=== PATIENT | female | born 1990 | race American Indian/Alaskan Native ===

== ENCOUNTER 2018-08-15 10:02 | Emergency (ER) | payer MEDICAID ==
[2018-08-15 10:11] VITALS: BP 113/68
--- NOTE | 2018-08-15 12:18 | Emergency Department Report ---
ED Female HPI - General Chief complaint: Vaginal Bleeding Stated complaint: VAGINAL BLEEDING Time Seen by Provider: 08/15/18 12:13 Source: patient Mode of arrival: Ambulatory Limitations: No Limitations - History of Present Illness Initial comments: Patient is 28 years old female 8 para 7. Patient presented to the ER complaining of vaginal bleeding, spotting started this morning. Patient stated that her last menstrual period was June 20. Patient also complaining of lower abdominal pain, crampy in nature. Patient denied any vaginal discharge or dysuria. No fever, shortness of breath or chest pain. MD Complaint: vaginal bleeding - Related Data Allergies Allergy/AdvReac Type Severity Reaction Status Date / Time No Known Allergies Allergy Unverified 08/15/18 10:09 ED Review of Systems ROS: Stated complaint: VAGINAL BLEEDING Other details as noted in HPI Comment: All other systems reviewed and negative Constitutional: denies: chills, fever Respiratory: denies: cough, orthopnea, shortness of breath, SOB with exertion, SOB at rest Cardiovascular: denies: chest pain, palpitations Gastrointestinal: abdominal pain. denies: nausea, vomiting ED Past Medical Hx - Past Medical History Previous Medical History?: No - Surgical History Past Surgical History?: Yes Hx Cholecystectomy: Yes - Social History Smoking Status: Never Smoker Substance Use Type: None ED Physical Exam - General Limitations: No Limitations General appearance: alert, in no apparent distress - Head Head exam: Present: atraumatic, normocephalic, normal inspection - Eye Eye exam: Present: normal appearance, PERRL - ENT ENT exam: Present: normal exam, normal orophraynx, mucous membranes moist - Neck Neck exam: Present: normal inspection, full ROM. Absent: tenderness, meningism us, lymphadenopathy, thyromegaly - Respiratory Respiratory exam: Present: normal lung sounds bilaterally - Cardiovascular Cardiovascular Exam: Present: regular rate, normal rhythm, normal heart sounds - GI/Abdominal GI/Abdominal exam: Present: soft, normal bowel sounds. Absent: distended, tenderness, guarding, rebound, rigid - Extremities Exam Extremities exam: Present: normal inspection, full ROM, normal capillary refill. Absent: tenderness - Back Exam Back exam: Present: normal inspection, full ROM. Absent: CVA tenderness (R), CVA tenderness (L), muscle spasm, paraspinal tenderness, vertebral tenderness - Neurological Exam Neurological exam: Present: alert, oriented X3, CN II-XII intact, normal gait, reflexes normal - Psychiatric Psychiatric exam: Present: normal mood - Skin Skin exam: Present: warm, intact, normal color ED Course Vital Signs 08/15/18 10:09 Temperature 98.6 F Pulse Rate 71 Respiratory 15 Rate Blood Pressure 113/68 O2 Sat by Pulse 99 Oximetry ED Medical Decision Making - Lab Data Result diagrams: 08/15/18 12:30 08/15/18 12:30 - Radiology Data Radiology results: report reviewed - Medical Decision Making Patient is 28 years old female 8 para 7. Patient presented to the ER complaining of vaginal bleeding, spotting started this morning. Patient stated that her last menstrual period was June 20. Patient also complaining of lower abdominal pain, crampy in nature. Patient denied any vaginal discharge or dysuria. No fever, shortness of breath or chest pain. Patient ultrasound showed a 11 L weeks viable intrauterine gestational pregn galo. Rhogam ordered and processed by the blood bank that unfortunately patient decided to leave before that AGAINST MEDICAL ADVICE. Patient is alert, oriented 3 and has a capacity to make a sound decision. Patient left without signing AMA paper. Patient informed thoroughly about the risk of not taking the medication and also advised to return to the ER at any time. Critical care attestation.: If time is entered above; I have spent that time in minutes in the direct care of this critically ill patient, excluding procedure time. ED Disposition Clinical Impression: Abdominal pain in , Vaginal bleeding affecting early Disposition: DC-07 LEFT AGAINST MED ADVICE Is pt being admited?: No Condition: Stable Instructions: Abdominal Pain in (ED) Referrals: GEREMIAS GURROLA MD [Primary Care Provider] - 3-5 Days [facility] [Provider Group] - 3-5 Days
[2018-08-15 12:37] LABS: Bilirubin,Urine NEG (Negative); Blood,Urine NEG (Negative); Color,Urine Yellow (Yellow); Mucus,Urine 3+ /HPF; Protein,Urine <15 mg/dL mg/dL (Negative)
[2018-08-15 12:59] LABS: Eosinophils # (Auto) 0.1 K/mm3 (0.0-0.4); Monocytes # (Auto) 0.5 K/mm3 (0.0-0.8); Monocytes % (Auto) 7.7 % (0.0-7.3)
[2018-08-15 13:03] LABS: Hematocrit 35.6 % (30.3-42.9); Mean Corpuscular HGB Conc 31 % (30-34); Mean Corpuscular Volume 68 fl (79-97); Platelet Count 261 K/mm3 (140-440); Red Blood Count 5.26 M/mm3 (3.65-5.03); Red Cell Distribution Width 19.4 % (13.2-15.2)
[2018-08-15 13:04] LABS: Basophils % (Auto) 0.7 % (0.0-1.8); Lymphocytes # (Auto) 1.8 K/mm3 (1.2-5.4); Lymphocytes % (Auto) 28.8 % (13.4-35.0)
[2018-08-15 13:09] LABS: BUN/Creatinine Ratio 8; Blood Urea Nitrogen 5 mg/dL (7-17); Calcium 8.9 mg/dL (8.4-10.2); Hemolysis Index 7
--- NOTE | 2018-08-15 14:30 | Ultrasound Report ---
ULTRASOUND OB LESS THAN 14 WEEKS FETUS History: Abdominal pain during , beta hCG level 73,402. Findings: Transabdominal imaging was performed. The uterus measures 9.7 x 7.3 x 7.6 cm. No obvious uterine fibroids. An intramural fibroid in the anterior wall measures 2.9 x 2.8 cm. An intrauterine gestational sac containing a pole is identified. heart rate measures 165 beats per minute. Tiburon-rump length measures 43.3 mm which correlates with an 11 week 1 day . The placenta appears to be forming along the right lateral wall. No subplacental collection is appreciated. The right ovary measures 4.1 x 3.1 x 3.2 cm and contains a 2.7 cm simple cyst. The left ovary is unremarkable measuring 2.4 x 1.6 x 2.2 cm. No pelvic fluid collection. Impression: Viable intrauterine as described. Uterine fibroid. Right ovarian cyst.
== END 2018-08-15 17:39 | disposition left against medical advice (07) ==
LOC: ED 10:02
DX: O20.9 Hemorrhage in early pregnancy, unspecified (principal); Z3A.01 Less than 8 weeks gestation of pregnancy; Z90.49 Acquired absence of other specified parts of digestive tract
CPT/HCPCS: 36415; 76801; 80048; 81001; 84702; 85025; 86850; 86900; 86901; 96372

== ENCOUNTER 2018-08-25 13:26 | Emergency (ER) | payer MEDICAID ==
[2018-08-25 14:14] VITALS: BP 111/77
--- NOTE | 2018-08-25 14:16 | Emergency Department Report ---
Blank Doc - Documentation Documentation: 28 y o female has ring stuck to left midle finger this am when she w yany uop no other cc <DAVIN LIMA - Last Filed: 08/25/18 14:15> - Documentation Documentation: A physician and/or other qualified medical personnel has recommended that the patient receive further examination and/or treatment beyond their Medical Screening Exam. The risks and benefits were explained. The patient was info rmed of their right to emergency care. Patient left before final disposition of their medical condition. This note has been generated by me, Dr. Celia Crowell III, MD, the Front Edger for the emergency department. I have not seen this patient personally. <CELIA CROWELL - Last Filed: 08/27/18 16:29>
== END 2018-08-25 14:28 | disposition left against medical advice (07) ==
LOC: ED 13:26
DX: M79.644 Pain in right finger(s) (principal); Z53.21 Procedure and treatment not carried out due to patient leaving prior to being seen by health care provider